=== PATIENT | male | born 1995 | race Native Hawaiian/Other Pacific Islander ===

== ENCOUNTER 2020-08-04 18:24 | Emergency (ER) | payer OTHER ==
[~2020-08-04] VITALS: Ht 185.4 cm; Wt 125.0 kg
[2020-08-04] MEDS ORDERED: METF-838 PO (18:33)
[2020-08-04] MEDS ORDERED: FENO1CAP16 PO (18:33)
[2020-08-04] MEDS ORDERED: LIDOCAINE 1% MDV 20ML VIAL As Ordered ONE (20:34)
[2020-08-04] MEDS ORDERED: LIDOCAINE 1% MDV 20ML VIAL SC ONE (20:35)
[2020-08-04 21:11] VITALS: BP 137/84
== END 2020-08-04 21:20 | disposition home or self-care (01) ==
LOC: M ED 18:24
DX: S61.202A Unspecified open wound of right middle finger without damage to nail, initial encounter (principal); W26.0XXA Contact with knife, initial encounter; Y92.9 Unspecified place or not applicable; Y93.9 Activity, unspecified; Y99.9 Unspecified external cause status; E11.9 Type 2 diabetes mellitus without complications

== ENCOUNTER → 2020-11-20 | Outpatient (REF) ==
[~2020-11-20] MED LIST: FENO1CAP16 PO; METF-838 PO
--- NOTE | 2020-11-20 13:47 | REP ---
INDICATION: PAIN. COMPARISON: None. TECHNIQUE: AP and lateral views FINDINGS: There is no acute fracture or destructive osseous lesion. IMPRESSION: Within normal limits <Electronically signed by Brendon Dos Santos > 11/20/20 [id number]
== END ==
LOC: M PLAIMG 12:56
PROVIDERS: ATTEND Internal Medicine
DX: M79.601 Pain in right arm (principal)